=== PATIENT | male | born 1995 | race Caucasian/White ===

== ENCOUNTER 2017-11-25 15:10 | Emergency (ER) | payer BC ==
[~2017-11-25] VITALS: Ht 188 cm; Wt 142.9 kg
[2017-11-25 15:21] VITALS: BP 186/86
[2017-11-25] MEDS ORDERED: TETANUS-DIPTH-ACEL PERTUSSIS 0.5ML SYRG IM ONE (16:45)
[2017-11-25] MEDS ORDERED: NEOMYCIN-BACITRACIN-POLYM UNITDOSE PKG TOP OINT TOP ONE (16:45)
[2017-11-25] MEDS ORDERED: LIDOCAINE 1% HCL (LOCAL ANESTH.) INJ 20ML MDV ID ONE (16:45)
== END 2017-11-25 17:33 | disposition home or self-care (01) ==
LOC: ER 15:10
DX: S61.411A Laceration without foreign body of right hand, initial encounter (principal); W22.8XXA Striking against or struck by other objects, initial encounter; Y93.89 Activity, other specified; Y92.89 Other specified places as the place of occurrence of the external cause; Y99.8 Other external cause status
CPT/HCPCS: 12001; 73130; 90715; 99284; J2001